=== PATIENT | female | born 1985 | race African-American/Black ===

== ENCOUNTER 2020-04-06 12:11 | Emergency (ER) | payer MEDICAID ==
[~2020-04-06] VITALS: Ht 157.5 cm; Wt 68.0 kg
[2020-04-06 12:30] VITALS: BP 121/89
[2020-04-06] MEDS ORDERED: ACETAMINOPHEN ES 500 MG TABLET ONE (12:51)
[2020-04-06] MEDS ORDERED: ACETAMINOPHEN ES 500 MG TABLET PO ONE (13:00)
[2020-04-06] MEDS ORDERED: AMOX/CLAVULANATE 875 MG TABLET PO ONE (13:30)
[2020-04-06] MEDS ORDERED: AMOX/CLAVULANATE 875 MG TABLET ONE (13:32)
== END 2020-04-06 14:29 | disposition home or self-care (01) ==
LOC: ER 12:24
DX: J02.0 Streptococcal pharyngitis (principal); Z20.822 Contact with and (suspected) exposure to COVID-19
CPT/HCPCS: 87426; 99283; C9803

== ENCOUNTER 2020-05-30 15:05 | Emergency (ER) | payer MEDICAID ==
[~2020-05-30] VITALS: Ht 157.5 cm; Wt 51.7 kg
[2020-05-30 15:12] VITALS: BP 124/81
--- NOTE | 2020-05-30 15:40 | NUR ---
Patient discharged to home in stable condition. Written and verbal after care instructions given. Patient verbalizes understanding of instruction.
== END 2020-05-30 15:40 | disposition home or self-care (01) ==
LOC: ER 15:05
DX: R53.83 Other fatigue (principal); Z60.2 Problems related to living alone

== ENCOUNTER 2020-06-20 15:05 | Emergency (ER) | payer MEDICAID ==
[~2020-06-20] VITALS: Ht 157.5 cm; Wt 61.2 kg
[2020-06-20 15:13] VITALS: BP 115/71
[2020-06-20] MEDS ORDERED: DIPH50CA4 PO (16:38)
[2020-06-20] MEDS ORDERED: CLOT15CR27 TP (16:39)
--- NOTE | 2020-06-20 16:56 | NUR ---
Patient discharged to home in stable condition. Written and verbal after care instructions given. Patient verbalizes understanding of instruction.
== END 2020-06-20 16:58 | disposition home or self-care (01) ==
LOC: ER 15:05
DX: L23.9 Allergic contact dermatitis, unspecified cause (principal); N89.8 Other specified noninflammatory disorders of vagina; Z98.890 Other specified postprocedural states; Z60.2 Problems related to living alone; Z79.899 Other long term (current) drug therapy